=== PATIENT | female | born 1965 | race Caucasian/White ===

== ENCOUNTER 2017-07-25 14:12 | Emergency (ER) | payer MEDICAID ==
[~2017-07-25] VITALS: Ht 152.4 cm; Wt 72.0 kg
[2017-07-25 14:48] VITALS: BP 114/80
== END 2017-07-25 14:50 | disposition home or self-care (01) ==
LOC: ED 14:44
DX: T14.8XXA Other injury of unspecified body region, initial encounter (principal); B86 Scabies; W57.XXXA Bitten or stung by nonvenomous insect and other nonvenomous arthropods, initial encounter; Y93.89 Activity, other specified; Y92.59 Other trade areas as the place of occurrence of the external cause; Y99.0 Civilian activity done for income or pay
CPT/HCPCS: 99283